=== PATIENT | male | born 1965 | race African-American/Black ===

== ENCOUNTER 2016-06-18 12:15 | Emergency (ER) | payer OTHER ==
[2016-06-18 12:32] VITALS: BP 115/78
--- NOTE | 2016-06-18 12:52 | UC ---
Throat Pain/Nasal Ab HPI - HPI Summary HPI Summary: pt presents c/o nasal congestion, fatigue, and generalized malaise X 8 hours. Pt reports receiving flu vaccine in fall 2015. - History of Current Complaint Chief Complaint: UC Stated Complaint: HEADACHE HEAD CONGESTION Time Seen by Provider: 06/18/16 12:24 Hx Obtained From: Patient Onset/Duration: Sudden Onset, Lasting Hours Severity: Mild Associated Signs & Symptoms: Positive: Sinus Discomfort, Fever - unknown temperature does not have thermometer - Epiglottits Risk Factors Epiglottis Risk Factors: Negative - Allergies/Home Medications Allergies/Adverse Reactions: Allergies Allergy/AdvReac Type Severity Reaction Status Date / Time Pork Allergy Allergy Headache Verified 06/18/16 12:25 DOG/CAT HAIR Allergy Severe Sneezing Uncoded 06/18/16 12:25 PMH/Surg Hx/FS Hx/Imm Hx Previously Healthy: Yes Endocrine History Of: Reports: Diabetes Denies: Thyroid Disease Cardiovascular History Of: Denies: Cardiac Disorders, Hypertension, Pacemaker/ICD Respiratory History Of: Reports: Asthma Denies: COPD GI/ History Of: Denies: Gastroesophageal Reflux, Renal Disease Neurological History Of: Denies: CVA, Dementia, Seizures Other History Of: Negative For: Anticoagulant Therapy - Surgical History Surgical History: None - Family History Known Family History: Positive: Hypertension, Diabetes - Social History Lives: With Family Alcohol Use: None Substance Use Type: None Smoking Status (MU): Never Smoked Tobacco - Immunization History Most Recent Influenza Vaccination: fall 2015 Review of Systems Constitutional: Fever, Fatigue Skin: Negative Eyes: Negative ENT: Other - nasal congestion Respiratory: Negative Cardiovascular: Negative Gastrointestinal: Negative Genitourinary: Negative Motor: Negative Neurovascular: Negative Musculoskeletal: Myalgia Neurological: Negative Psychological: Negative All Other Systems Reviewed And Are Negative: Yes Physical Exam Triage Information Reviewed: Yes Appearance: Ill-Appearing Vital Signs: Initial Vital Signs Temp 97.5 F 06/18/16 12:28 Pulse 76 06/18/16 12:28 Resp 16 06/18/16 12:28 BP 115/78 06/18/16 12:28 Pulse Ox 99 06/18/16 12:28 Eye Exam: Normal ENT Exam: Other ENT: Positive: Nasal congestion, TMs normal Neck exam: Normal Respiratory Exam: Normal Cardiovascular Exam: Normal Musculoskeletal Exam: Normal Neurological Exam: Normal Psychological Exam: Normal Skin Exam: Normal Throat Pain/Nasal Course/Dx - Differential Dx/Diagnosis Differential Diagnosis/HQI/PQRI: Influenza, Pharyngitis, URI Provider Diagnoses: URI Discharge - Discharge Plan Condition: Stable Disposition: HOME Prescriptions: Ibuprofen TAB* [Motrin TAB* 600 MG] 600 mg PO Q8H PRN #30 tab PRN Reason: Pain Pseudoephedrine-Guaifenesin [Mucinex D 60-600 mg] 1 tab PO DAILY #10 tab Patient Education Materials: Viral Syndrome (ED) Referrals: Berkley Eddy MD [Primary Care Provider] -
== END 2016-06-18 12:58 | disposition home or self-care (01) ==
LOC: UCEAST 12:15
DX: J06.9 Acute upper respiratory infection, unspecified (principal)
CPT/HCPCS: 99211; G0463